=== PATIENT | female | born 1965 | race Caucasian/White ===

== ENCOUNTER 2020-12-16 09:52 | Day surgery (SDC) | payer SELFPAY ==
[2020-12-16] MEDS ORDERED: PHENYLEPHRINE-NS 100 MCG/ML 10 ML SYRINGE ONE (09:57)
[2020-12-16] MEDS ORDERED: Ondansetron PF 4 MG/2 ML Vial ONE (09:57)
[2020-12-16] MEDS ORDERED: Lidocaine 1% PF 5 ML VIAL ONE (09:57)
[2020-12-16] MEDS ORDERED: PROPOFOL 200 MG/20 ML VIAL ONE (09:57)
[2020-12-16 11:05] LABS: #Basophils 0.1 thou/uL (0.0-0.2); #Eosinphils 0.2 thou/uL (0.0-0.7); #Lymphocytes 2.9 thou/uL (1.20-3.40); #Monocytes 0.9 thou/uL (0.11-0.59); #Neutrophils 6.7 thou/uL (1.40-6.50); %Basophils 0.9 % (0.0-1.0); %Eosinophils 1.6 % (0.0-10.0); %Lymphocytes 26.7 % (21.0-51.0); %Monocytes 7.9 % (0.0-10.0); %Neutrophils 62.8 % (42.0-75.0); Mean Corpuscular HGB CONC 33.1 g/dL (32.0-36.0); Mean Corpuscular Hemoglobin 31.7 pg (27.0-31.0); Mean Corpuscular Volume 95.6 fL (78.0-98.0); Mean Platelet Volume 7.2 fL (7.4-10.4); Platelet Count 282 thou/uL (130-400); RBC Distribution Width 12.7 % (11.5-14.5); Red Blood Cell (RBC) Count 4.09 mill/uL (4.20-5.40); White Blood Cell (WBC) Count 10.7 thou/uL (4.8-10.8)
[2020-12-16] MEDS ORDERED: Morphine 4 MG/ML VIAL ONE (11:11)
[2020-12-16] MEDS ORDERED: Acetaminophen 325 MG TAB ONE (11:11)
--- NOTE | 2020-12-16 11:23 | RAD ---
RIGHT WRIST 3 VIEWS: HISTORY: Pain. COMPARISON: None. FINDINGS: Intraarticular distal radius fracture with lateral and dorsal displacement as impaction and foreshort ening. Scaphoid is intact. Secondary positive ulnar variance. IMPRESSION: Impacted angulated and displaced intraarticular distal radius fracture. POS: [facility]
--- NOTE | 2020-12-16 11:24 | RAD ---
RIGHT FOREARM 2 VIEWS: HISTORY: Pain. Fall. COMPARISON: None. FINDINGS: Intraarticular distal radius fracture secondary to foreshortening of the distal ulna. The proximal f orearm is intact. No definite elbow joint effusion. IMPRESSION: Intraarticular distal radius fracture. POS: [facility]
[2020-12-16 11:32] LABS: ALT (SGPT) 76 U/L (8-55); AST (SGOT) 38 U/L (5-34); Albumin 3.9 g/dL (3.5-5.0); Alkaline Phosphatase 92 U/L (40-110); Anion Gap 13 mmol/L (10-20); BUN (Urea Nitrogen) 13 mg/dL (9.8-20.1); Bilirubin, Total 0.3 mg/dL (0.2-1.2); Calc. Creatinine Clearance 0 mL/min (70-130); Calcium 10.7 mg/dL (7.8-10.44); Carbon Dioxide 23 mmol/L (22-29); Chloride 106 mmol/L (98-107); Globulin 3.9 g/dL (2.4-3.5); Glucose 96 mg/dL (70-105); Potassium 3.8 mmol/L (3.5-5.1); Protein, Total 7.8 g/dL (6.0-8.3); Salicylate Less than 8.0 mg/dL (15.0-30.0); Sodium 138 mmol/L (136-145)
[2020-12-16] MEDS ORDERED: Morphine 2 MG/ML VIAL SLOW IVP PRN (12:26)
[2020-12-16] MEDS ORDERED: Ondansetron PF 4 MG/2 ML Vial IVP PRN (12:26)
[2020-12-16] MEDS ORDERED: Communication Order-Pharmacy FS SCH ×2 (12:30→14:00)
--- NOTE | 2020-12-16 12:52 | CON ---
DATE OF CONSULTATION: 12/16/2020 REQUESTING PHYSICIAN: Thaddeus Encinas MD CONSULTING PHYSICIAN: Stefan Blackmon MD REASON FOR CONSULTATION: Subacute presentation of right distal radius fracture. BRIEF CLINICAL HISTORY: Michelle is a 55-year-old female, who is a resident at a [facility] here locally, who slipped and fell on ice last week, resulting in a FOOSH injury of the right upper extremity. She was not brought via EMS due to communication and administrative complications, however, she is brought today here by her Case Management, who noticed that her self-care was lacking and she was not using her right upper extremity vigorously. The patient has a schizoaffective disorder, but is her own cardona. PAST MEDICAL HISTORY: Otherwise, negative. PAST SURGICAL HISTORY: Negative. MEDICATIONS: None. ALLERGIES: NO KNOWN DRUG ALLERGIES. DENIES ANY CONTACT ALLERGIES. SOCIAL HISTORY: She is unmarried resident with schizoaffective disorder. Lives in the local community home with routine caregivers. No ethanol, tobacco, or illicit drug abuse reported. PHYSICAL EXAMINATION: HEENT: Head; normocephalic, atraumatic. Pupils are equally round and reactive to light. Oropharynx benign. CHEST: Clear to auscultation. HEART: Regular rate and rhythm. ABDOMEN: Soft, benign. EXTREMITIES: No clubbing, cyanosis, or edema. Visual inspection of the right upper extremity demonstrates her to have a very mild dinner fork abnormality of the right upper extremity, but she has good digital excursion. She cradled the right upper extremity with the left. She is neurovascularly intact. Very slight ecchymosis is noted in and around the fracture. IMAGING STUDIES: Three views of right wrist demonstrates a three-part distal radial metaphyseal fracture with a very small dorsal intercondylar split but with dorsal angulation of the volar segment. IMPRESSION: Left three-part intra-articular dorsally angulated distal radius metaphyseal fracture. PLAN: 1. The patient will be admitted by the Trauma Team. 2. I have already for 3 o'clock today, n.p.o. now. 3. The risks, benefits, options, alternatives, and rationale for proceeding with open reduction and internal fixation of the right distal radius has been explained in great detail to the patient. She is ready to proceed. All questions were answered. No guarantee of outcome has been stated or implied. 4. Please see orders. Job ID: [id number]
--- NOTE | 2020-12-16 13:11 | RAD ---
EXAM: CHEST ONE VIEW HISTORY: Left arm pain after a fall. Swelling and tenderness to arm. Patient not using arms. COMPARISON: None FINDINGS: The cardiac silhouette and pulmonary vasculature are within normal limits. The lungs are clear. The o sseous structures are intact. IMPRESSION: No acute cardiopulmonary process.
[2020-12-16] MEDS ORDERED: Ketorolac Tromethamine 30 MG/ML VIAL ONE (14:00)
[2020-12-16] MEDS ORDERED: Pharmacy to Dose ALL ABX IVPB SCH (14:00)
[2020-12-16 14:18] LABS: Lactic Acid 2.2 mmol/L (0.5-2.2)
[2020-12-16 14:30] LABS: INR-International Normal Ratio 0.9; PTT 24.1 sec (22.9-36.1); Prothrombin Time 12.3 sec (12.0-14.7)
[2020-12-16 14:32] LABS: Bilirubin Negative (Negative); Blood, Urine Negative (Negative); Clarity Clear (Clear); Glucose, Urine (Dipstick) Normal (Negative); Ketone, Urine Negative (Negative); Leukocyte Negative Leu/uL (Negative); Nitrite Negative (Negative); Protein, Urine (Dipstick) Negative (Neg-Trace); Specific Gravity, Urine 1.013 (1.002-1.036); Urobilinogen Normal mg/dL (Less than 2); pH, Urine 7.5 (5.0-9.0)
[2020-12-16] MEDS ORDERED: Midazolam HCl 2 mg/2 ml Vial ONE (15:07)
[2020-12-16] MEDS ORDERED: Labetalol HCl 100 MG/20 ML VIAL ONE (15:07)
[2020-12-16] MEDS ORDERED: Fentanyl 100 MCG/2 ML VIAL ONE ×2 (15:11→17:13)
[2020-12-16] MEDS ORDERED: Dexmedetomidine 200 MCG/2 ML VIAL ONE (15:11)
[2020-12-16] MEDS ORDERED: EPINEPHrine 1 MG/ML AMP ONE (16:15)
[2020-12-16] MEDS ORDERED: Bupivacaine PF 0.5% 30 ML VIAL ONE (16:15)
[2020-12-16] MEDS ORDERED: Lidocaine 1% w/Epinephrine 1:100K 20 ML VIAL ONE (16:15)
--- NOTE | 2020-12-16 16:42 | RAD ---
Exam: XR Forearm Rt 2 View STANDARD HISTORY: ORIF distal radius COMPARISON: 12/16/2020 at 1055 hours. FINDINGS/IMPRESSION: 2 intraoperative fluoroscopic images of the distal right forearm and wrist are submitted for interpre tation. A volar plate and screws now transfix the previously seen comminuted fracture distal right radial metaphysis. There is improvement in alignment of fracture fragments. No hardware complication is seen. Correlation with intraoperative findings is recommended. Fluoroscopy: Time-6.9 seconds Dose-0.17 mGy
[2020-12-17] MEDS ORDERED: TETANUS AND DIPHTHERIA TOX/PF 0.5 ML DISP.SYRIN IM SCH (09:00)
--- NOTE | 2020-12-17 13:44 | OP ---
DATE OF PROCEDURE: 12/16/2020 PREOPERATIVE DIAGNOSIS: Right Colles fracture (less than 3 fragments). POSTOPERATIVE DIAGNOSIS: Right Colles fracture (less than 3 fragments). PROCEDURE PERFORMED: Open reduction and internal fixation of right Colles fracture. ANESTHESIA: General. ARMATURE VARNISHER: Kieran SHAW. TOURNIQUET TIME: 44 minutes at 250 mmHg. IMPLANTS: Synthes 2.4 mm variable angle LCP 2-column plate. COMPLICATIONS: None. DRAINS: None. SPECIMEN: None. OUTCOME: Satisfactory. INDICATIONS FOR PROCEDURE: The patient is a 55-year-old lady status post fall on outstretched right wrist. She sustained a distal radius fracture with dorsal comminution and significant dorsal angulation. After discussion with the patient including risks and benefits, we decided to proceed with open reduction and internal fixation of this displaced fracture. Informed consent has been obtained, I believe all questions have been answered. DESCRIPTION OF PROCEDURE: The patient was brought to the operating room and a time-out performed followed by induction of general anesthesia. Next, the patient was positioned supine on the OR table with the arm held on an armboard and then a sterile prep and drape performed of this right upper extremity. Next, the limb was exsanguinated with Esmarch bandage, tourniquet inflated to 250 mmHg. Next, a volar radial skin incision was made after skin was longitudinally incised. Dissection was carried down bluntly exposing the tendon of the flexor carpi radialis just to the radial aspect of this tendon. Incision was made through the fascia and then the flexor digitorum was swept to the midline revealing the underlying pronator quadratus. While my butcher assistant maintained retraction of the neurovascular bundle to the radial side of the wrist as well as the flexor digitorum to the medial side of the wrist, the pronator quadratus was released sharply off the radial border of the distal radius and then swept to the midline revealing the underlying fracture. Under direct visualization, the fracture was reduced and once reduced, a volar 2.4 mm variable angle LCP 2-column plate was applied to the distal radius. This was held in place with a cortical screw proximal to the fracture fragments. Once held against the bone, AP and lateral C-arm images were obtained that showed acceptable alignment of fracture and positioning of hardware. While my butcher assistant continued to maintain retraction of the neurovascular bundle, the four locking screws in the horizontal limb of the plate were placed in standard fashion capturing the distal fragment. Two additional cortical screws were then placed proximally. At the completion of this, final AP and lateral C-arm images were obtained that showed acceptable alignment of fracture and hardware. The wound was then irrigated with bulb syringe, closed in layers with 0 Vicryl deep followed by 2-0 Vicryl and then nylon for the skin. Xeroform gauze, Webril, and fiberglass splint was applied to the wrist and then the tourniquet was let down with total time of 44 minutes. The patient was then transferred to recovery room in stable condition. There were no complications. She tolerated the procedure well. Job ID: [id number] [facility]
== END 2020-12-16 19:16 | disposition home or self-care (01) ==
LOC: ERS 09:52 → SDC 14:21
PROVIDERS: ATTEND Orthopaedic Surgery
PROC: 0PSH04Z Reposition Right Radius with Internal Fixation Device, Open Approach (ICD-10-PCS; principal; 2020-12-16)
DX: S52.531A Colles' fracture of right radius, initial encounter for closed fracture (principal); F25.9 Schizoaffective disorder, unspecified; W00.0XXA Fall on same level due to ice and snow, initial encounter
CPT/HCPCS: 29125; 36415; 71045; 76000; 80053; 80179; 81003; 83605; 85025; 85610; 85730; 87040; 87086; 93005; 96374; 96375; 80307; C1713; J0171; J0690; J1885; J2250; J2270; J2405; J2704; J3010; S0020

== ENCOUNTER 2020-12-27 08:44 | Emergency (ER) | payer SELFPAY ==
[2020-12-27] MEDS ORDERED: Acetaminophen 500 MG TAB ONE (10:36)
[2020-12-27] MEDS ORDERED: Cephalexin 250 MG CAP ONE (12:06)
== END 2020-12-27 12:13 | disposition home or self-care (01) ==
LOC: ERS 08:44
DX: L02.212 Cutaneous abscess of back [any part, except buttock and flank] (principal)
CPT/HCPCS: 10060